=== PATIENT | female | born 1950 | race Caucasian/White ===

== ENCOUNTER → 2016-08-05 | Outpatient (CLI) | payer OTHER ==
[2014-05-28 12:31] VITALS: BP 181/78
[2016-08-05 08:23] LABS: BASOPHILS % (AUTO) 0.7 % (0.2-1.0); EOSINOPHILS # (AUTO) 0.1 x10^3/uL (0.0-0.2); EOSINOPHILS % (AUTO) 2.1 % (0.9-2.9); HEMATOCRIT 39.9 % (36.0-47.0); HEMOGLOBIN 13.2 g/dL (12.0-16.0); LYMPHOCYTES # (AUTO) 1.2 X10^3/uL (1.3-2.9); LYMPHOCYTES % (AUTO) 32.4 % (21.0-51.0); MEAN CORPUSCULAR HGB CONC 33.1 g/dL (33.0-35.0); MEAN CORPUSCULAR VOLUME 90.8 fL (80.0-100.0); MEAN PLATELET VOLUME 10.1 fL (7.4-11.0); MONOCYTES # (AUTO) 0.4 x10^3/uL (0.3-0.8); MONOCYTES % (AUTO) 9.5 % (0.0-13.0); NEUTROPHILS # (AUTO) 2.1 x10^3/uL (2.2-4.8); NEUTROPHILS % (AUTO) 55.3 % (42.0-75.0); PLATELET COUNT 135 X10^3/uL (150.0-450.0); RED CELL DISTRIBUTION WIDTH 13.5 % (11.6-16.5); WHITE BLOOD COUNT 3.8 X10^3/uL (3.6-10.0)
== END | disposition home or self-care (01) ==
LOC: LAB 08:03
PROVIDERS: ATTEND Obstetrics & Gynecology Obstetrics
DX: R23.3 Spontaneous ecchymoses (principal); D51.0 Vitamin B12 deficiency anemia due to intrinsic factor deficiency
CPT/HCPCS: 36415; 82607; 82746; 85025; 85610; 85730

== ENCOUNTER → 2016-11-28 | Outpatient (CLI) | payer OTHER ==
[2014-05-28 12:31] VITALS: BP 181/78
--- NOTE | 2016-11-28 12:20 | MRI ---
HISTORY: Degenerative disc disease, cervicalgia, right radiculopathy Study: MRI cervical spine without contrast Comparison: None Technique: Multiplanar multisequence MRI of the cervical spine was obtained utilizing standard [facility] mental protocol. Findings: Alignment of the cervical spine is maintained. No abnormal signal characteristics of the bone marrow can be identified. No evidence for fracture or significant bone or edema can be seen. The surround ing soft tissues are unremarkable. The cervical spinal cord is normal in size and configuration and without foci of abnormal signal. C2 -- C3: No evidence for compressive disc disease. The neural foramina are patent. C3 -- C4: No evidence for compressive disc disease. The neural foramina are patent. C4 -- C5: There is mild disc degeneration. Mild broad-based disc bulging and spondylitic change contr ibute to foraminal narrowing bilaterally. There is no canal stenosis or cord compression. C5 -- C6: There is disc degeneration with broad-based disc osteophyte formation effacing the thecal s ac and contributing to foraminal narrowing on the right. The left neural foramen is patent. There is no canal stenosis or cord compression. C6 -- C7: Mild broad-based disk bulging effaces the thecal sac but does not contribute to significant canal stenosis or cord compression. There is moderate foraminal narrowing bilaterally. C7 -- T1: There is no evidence for compressive disc disease. The neural foramina are patent. IMPRESSION: As above Reported By:
== END | disposition home or self-care (01) | DRG 552 ==
LOC: RAD 08:57
PROVIDERS: ATTEND Physical Medicine & Rehabilitation
DX: M50.321 Other cervical disc degeneration at C4-C5 level (principal); M54.12 Radiculopathy, cervical region; M25.78 Osteophyte, vertebrae; M50.223 Other cervical disc displacement at C6-C7 level
CPT/HCPCS: 72141

== ENCOUNTER → 2016-12-31 | Outpatient (CLI) | payer OTHER ==
[2014-05-28 12:31] VITALS: BP 181/78
[2016-12-31 15:35] LABS: BASOPHILS % (AUTO) 0.6 % (0.2-1.0); EOSINOPHILS # (AUTO) 0.1 x10^3/uL (0.0-0.2); EOSINOPHILS % (AUTO) 1.7 % (0.9-2.9); HEMATOCRIT 41.3 % (36.0-47.0); HEMOGLOBIN 13.8 g/dL (12.0-16.0); LYMPHOCYTES # (AUTO) 1.8 X10^3/uL (1.3-2.9); LYMPHOCYTES % (AUTO) 31.8 % (21.0-51.0); MEAN CORPUSCULAR HGB CONC 33.5 g/dL (33.0-35.0); MEAN CORPUSCULAR VOLUME 89.6 fL (80.0-100.0); MEAN PLATELET VOLUME 11.5 fL (7.4-11.0); MONOCYTES # (AUTO) 0.4 x10^3/uL (0.3-0.8); NEUTROPHILS # (AUTO) 3.4 x10^3/uL (2.2-4.8); NEUTROPHILS % (AUTO) 58.9 % (42.0-75.0); PLATELET COUNT 127 X10^3/uL (150.0-450.0); RED BLOOD COUNT 4.61 X10^6/uL (3.5-5.4); RED CELL DISTRIBUTION WIDTH 13.1 % (11.6-16.5); WHITE BLOOD COUNT 5.8 X10^3/uL (3.6-10.0)
[2016-12-31 15:57] LABS: ALANINE AMINOTRANSFERASE 23 Units/L (12-78); ALBUMIN 4.5 g/dL (3.4-5.0); ALKALINE PHOSPHATASE 63 Units/L (46-116); ASPARTATE AMINO TRANSFERASE 16 Units/L (15-37); BLOOD UREA NITROGEN 12 mg/dL (7-18); CALCIUM 9.7 mg/dL (8.5-10.1); CARBON DIOXIDE 31.1 mmol/L (21-32); CHLORIDE 106 mmol/L (98-107); CHOL/HDL RATIO 3.1 (0.0-5.0); CHOLESTEROL 210 mg/dL (0-200); CREATININE 0.78 mg/dL (0.55-1.02); HDL CHOLESTEROL 68 mg/dL (40-60); SODIUM 142 mmol/L (136-145); TOTAL PROTEIN 7.5 g/dL (6.4-8.2); TRIGLYCERIDES 102 mg/dL (0-150); TSH (3RD GENERATION) 1.286 uIU/mL (0.358-3.74); eGFR BLACK RACES > 60 (>60); eGFR NON BLACK RACES > 60 (>60)
== END ==
LOC: LAB 14:54
PROVIDERS: ATTEND Obstetrics & Gynecology Obstetrics
DX: Z00.00 Encounter for general adult medical examination without abnormal findings (principal); E55.9 Vitamin D deficiency, unspecified
CPT/HCPCS: 36415; 80053; 80061; 82306; 82652; 84443; 85025

== ENCOUNTER → 2017-06-03 | Outpatient (CLI) | payer OTHER ==
[2014-05-28 12:31] VITALS: BP 181/78
[2017-06-03 10:07] LABS: BASOPHILS # (AUTO) 0.1 X10^3/uL (0.0-0.1); EOSINOPHILS # (AUTO) 0.1 x10^3/uL (0.0-0.2); EOSINOPHILS % (AUTO) 1.4 % (0.9-2.9); HEMATOCRIT 41.3 % (36.0-47.0); LYMPHOCYTES # (AUTO) 1.5 X10^3/uL (1.3-2.9); LYMPHOCYTES % (AUTO) 23.9 % (21.0-51.0); MEAN CORPUSCULAR HEMOGLOBIN 29.8 pg (27.0-34.0); MEAN CORPUSCULAR HGB CONC 33.9 g/dL (33.0-35.0); MEAN CORPUSCULAR VOLUME 87.7 fL (80.0-100.0); MEAN PLATELET VOLUME 10.9 fL (7.4-11.0); MONOCYTES # (AUTO) 0.4 x10^3/uL (0.3-0.8); MONOCYTES % (AUTO) 6.6 % (0.0-13.0); NEUTROPHILS # (AUTO) 4.3 x10^3/uL (2.2-4.8); NEUTROPHILS % (AUTO) 67.1 % (42.0-75.0); PLATELET COUNT 150 X10^3/uL (150.0-450.0); RED BLOOD COUNT 4.71 X10^6/uL (3.5-5.4); RED CELL DISTRIBUTION WIDTH 13.6 % (11.6-16.5)
[2017-06-03 10:28] LABS: ALANINE AMINOTRANSFERASE 33 Units/L (12-78); ALBUMIN 4.1 g/dL (3.4-5.0); ALKALINE PHOSPHATASE 80 Units/L (46-116); ASPARTATE AMINO TRANSFERASE 22 Units/L (15-37); BLOOD UREA NITROGEN 12 mg/dL (7-18); CARBON DIOXIDE 31.1 mmol/L (21-32); CHLORIDE 104 mmol/L (98-107); CHOL/HDL RATIO 3.7 (0.0-5.0); CHOLESTEROL 235 mg/dL (0-200); CREATININE 0.87 mg/dL (0.55-1.02); FREE T4 (FREE THYROXINE) 0.84 ng/dL (0.76-1.46); HDL CHOLESTEROL 64 mg/dL (40-60); MAGNESIUM 2.1 mg/dL (1.7-2.9); SODIUM 142 mmol/L (136-145); TOTAL PROTEIN 7.4 g/dL (6.4-8.2); TRIGLYCERIDES 127 mg/dL (0-150); TSH (3RD GENERATION) 1.848 uIU/mL (0.358-3.74); eGFR BLACK RACES > 60 (>60); eGFR NON BLACK RACES > 60 (>60)
[2017-06-03 11:22] LABS: WHITE BLOOD COUNT 6.8 X10^3/uL (3.6-10.0)
[2017-06-03 11:23] LABS: PLATELET MORPHOLOGY COMMENT NORMAL (NORMAL)
--- NOTE | 2017-06-03 16:04 | MG ---
HISTORY: SCREENING Comparison: Multiple priors dating back to April 11, 2014 FINDINGS: Bilateral CC and MLO projections of the right and left breast were obtained utilizing full field and pushback technique with bilateral subpectoral saline implants appearing grossly intact. Heterogeneou sly dense fibroglandular tissue is seen to be present without significant interval change. No suspic ious architectural distortion, mass or clustered microcalcifications can be observed to suggest malig cristiano. No skin thickening or nipple retraction is appreciated. No pathological lymphadenopathy can be identified. Benign-appearing calcifications are noted within the right and left breast. IMPRESSION: NO RADIOGRAPHIC EVIDENCE OF MALIGNANCY. ACR CATEGORY 2 - benign findings. FOLLOW-UP EXAM 1 YEAR. Diagnostic CAD was utilized and reviewed. * 0 (ZERO) - ASSESSMENT INCOMPLETE; ADDITIONAL IMAGING IS NEEDED. * 1/1 (ONE) - NEGATIVE. * 2/II (TWO) - BENIGN FINDINGS. * 3/III (THREE) - PROBABLY BENIGN FINDING; SHORT INTERVAL FOLLOW-UP SUGGESTED. * 4/IV (FOUR) - SUSPICIOUS ABNORMALITY; BIOPSY SHOULD BE CONSIDERED. * 5/V - HIGHLY SUSPICIOUS OF MALIGNANCY; BIOPSY SHOULD BE PERFORMED. A NEGATIVE X-RAY REPORT SHOULD NOT DELAY BIOPSY IF A DOMINANT OR CLINICALLY SUSPICIOUS MASS IS PRESENT; 4 TO 8 PERCENT OF CANCERS ARE NOT IDENTIFIED BY X-RAY. A NEGA TIVE REPORT MAY REINFORCE THE CLINICAL IMPRESSION. ADENOSIS AND DENSE BREASTS MAY OBSCURE AN UNDERLY ING NEOPLASM. Reported By:
== END ==
LOC: RAD 09:30
PROVIDERS: ATTEND Nurse Practitioner Family
DX: Z12.31 Encounter for screening mammogram for malignant neoplasm of breast (principal); R53.83 Other fatigue; E55.9 Vitamin D deficiency, unspecified; E78.4 Other hyperlipidemia; D51.0 Vitamin B12 deficiency anemia due to intrinsic factor deficiency; R29.0 Tetany; N95.1 Menopausal and female climacteric states
CPT/HCPCS: 36415; 77067; 80053; 80061; 82306; 82607; 82670; 83735; 84144; 84270; 84402; 84403; 84439; 84443; 85025

== ENCOUNTER 2017-06-18 07:56 | Day surgery (SDC) | payer OTHER ==
[2017-06-18] MEDS ORDERED: D5 LR 1000 ML 1,000 ML IV ONE (08:02)
[2017-06-18] MEDS ORDERED: DIPRIVAN VIAL 20 ML ONE (09:42)
[2017-06-18 10:37] VITALS: BP 127/77
== END 2017-06-18 10:25 | disposition home or self-care (01) ==
LOC: SURG1 07:56
PROVIDERS: ATTEND Internal Medicine Gastroenterology
PROC: 0DB88ZX Excision of Small Intestine, Via Natural or Artificial Opening Endoscopic, Diagnostic (ICD-10-PCS; principal; 2017-06-18 09:00)
PROC: 0DJ08ZZ Inspection of Upper Intestinal Tract, Via Natural or Artificial Opening Endoscopic (ICD-10-PCS; principal; 2017-06-18 09:00)
PROC: 0DB68ZX Excision of Stomach, Via Natural or Artificial Opening Endoscopic, Diagnostic (ICD-10-PCS; principal; 2017-06-18 09:00)
DX: R10.13 Epigastric pain (principal); R11.0 Nausea; K21.9 Gastro-esophageal reflux disease without esophagitis; K20.8 Other esophagitis; K29.60 Other gastritis without bleeding
CPT/HCPCS: A4217; J3490; J7120

== ENCOUNTER 2017-08-03 00:32 | Emergency (ER) | payer OTHER ==
[2017-08-03 00:48] VITALS: BP 182/79; BMI 22.0
--- NOTE | 2017-08-03 01:13 | DR.GENAD ---
HPI - PCP Primary Care Physician: eDya Diaz - HPI Comment HPI Comment: TREATED FOR UTI BUT PAIN STILL PRESENT. PAIN WORSE TODAY. NO FEVER. TOOK AZO FOR SLIGHT DYSURIA. HAVING N/V. DID HAVE DIARRHEA WITH ANTIBIOTIC IS RESOLVING. - Complaint/Symptoms Chief Complaint Doctors Comments: RLQ ABDOMIONAL PAIN TIMES 4 DAYS. Chief Complaint:: Abdominal Pain, N/V and Diarrhea Self Treatment fo Chief Complaint: No Treatment - Nurses notes reviewed Nurses Notes Review: Yes - Source History Provided: Patient - Mode of Arrival Mode of Arrival: EMS - Timing Onset of Chief Complaint: 08/03/17 Came on: Suddenly - Duration Duration: Constant Duration: Days - Severity Severity: Moderate PMH - PMH Past Medical History: No Past Medical History: Anxiety, Depression Past Medical History Comment: C-Diff 3 years Ago Past Surgical History: Yes Surgical History: Hysterectomy, Neurosurgery Past Surgical History Comment: (R) Shoulder Surgery. Back Surgery - Family History History of Family Medical Conditions: Yes Family Medical History: Cancer, Coronary Artery Disease - Social History Does patient currently use any type of tobacco product: No Have you used tobacco products in the last 12 months: No Type of Tobacco Use: None Does any household member use tobacco: No Alcohol Use: None Do you use any recreational Drugs:: No Lives With: Alone Lives Where: Home - infectious screening In the last 2 months have you had wt loss of >10#?: NO Have you had fever, night sweats or hemotysis?: No Have you traveled outside the country in the last 6 months?: No Isolation: Standard ROS - Review of Systems Constitutional: No Symptoms Reported Eyes: No Symptoms Reported ENTM: No Symptoms Reported Respiratoy: No Symptoms Reported Cardiovascular: No Symptoms Reported Gastrointestinal/Abdominal: Abdominal Pain (RLQ ABDOMINAL PAIN), Nausea, Vomiting Neurological: No Symptoms Reported Musculoskeletal: Back Pain Integumentary: No Symptoms Reported Hematologic/Lymphatic: No Symptoms Reported Endocrine: No Symptoms Reported All Other Systems: Reviewed and Negative PE - Vital Signs Vitals: Temperature 97.8 F Pulse Rate 69 Respiratory Rate 22 Blood Pressure [Right Arm] 181/78 Blood Pressure [Left Arm] 122/60 Blood Pressure 182/79 O2 Sat by Pulse Oximetry 97 - General Limitations: No Limitations General Appearance: Alert - Head Head Exam: Normal Inspection - Eyes Eye exam: Normal Appearance - ENT ENT Exam: Normal External Ear Exam External Ear Exam: Normal External Inspection TM/Canal Exam: Bilateral Normal Nose Exam: Normal Nose Exam Mouth Exam: Normal Inspection Throat Exam: Normal Inspection - Neck Neck Exam: Trachea Midline - Chest Chest Inspection: Symmetric Chest Wall Rise - Respiratory Respiratory Exam: Normal Lung Sounds Bilat Respiratory Exam: Bilateral Clear to Auscultation - Cardiovascular Cardiovascular Exam: Regular Rate, Normal Rhythm, Normal Heart Sounds - Abdominal Exam Abdominal Exam: Normal Bowel Sounds, Soft, Tenderness Abdominal Tenderness: RLQ, Moderate - Extremities Extremities Exam: Normal Inspection - Back Back Exam: Normal Inspection - Neurologic Neurological Exam: Alert, Oriented X3 - Psychiatric Psychiatric Exam: Anxious - Skin Skin Exam: Normal Color MDM - Additional Information Additional Information Obtained From: Family - Differential Diagnosis Differential Diagnosis: RLQ ABDOMINAL PAIN, KIDNEY STONE, UTI, APPENDICITIS. Course - Treatment Treatment: SEE ORDERS. PAIN MED IN ED. PAIN IMPROVED. - Education/Counseling Education/Counseling: Patient, Family, Education Educated On: Treatment, Diagnosis, Needs for Follow Up ROR - Labs Reviewed Laboratory Results Reviewed?: Yes Result Diagrams: 08/03/17 01:13 08/03/17 01:13 Laboratory: WBC 14.0 X10^3/uL (3.6-10.0) H 08/03/17 01:13 RBC 4.70 X10^6/uL (3.5-5.4) 08/03/17 01:13 Hgb 13.7 g/dL (12.0-16.0) 08/03/17 01:13 Hct 40.8 % (36.0-47.0) 08/03/17 01:13 MCV 86.8 fL (80.0-100.0) 08/03/17 01:13 MCH 29.2 pg (27.0-34.0) 08/03/17 01:13 MCHC 33.6 g/dL (33.0-35.0) 08/03/17 01:13 RDW 12.9 % (11.6-16.5) 08/03/17 01:13 Plt Count 129 X10^3/uL (150.0-450.0) L 08/03/17 01:13 MPV 10.6 fL (7.4-11.0) 08/03/17 01:13 Neut % (Auto) 87.4 % (42.0-75.0) H 08/03/17 01:13 Lymph % (Auto) 7.3 % (21.0-51.0) L 08/03/17 01:13 Isabel[place] % (Auto) 4.9 % (0.0-13.0) 08/03/17 01:13 Eos % (Auto) 0.2 % (0.9-2.9) L 08/03/17 01:13 Baso % (Auto) 0.2 % (0.2-1.0) 08/03/17 01:13 Neut # (Auto) 12.3 x10^3/uL (2.2-4.8) H 08/03/17 01:13 Lymph # (Auto) 1.0 X10^3/uL (1.3-2.9) L 08/03/17 01:13 Isabela # (Auto) 0.7 x10^3/uL (0.3-0.8) 08/03/17 01:13 Eos # (Auto) 0.0 x10^3/uL (0.0-0.2) 08/03/17 01:13 Baso # (Auto) 0.0 X10^3/uL (0.0-0.1) 08/03/17 01:13 Absolute Nucleated RBC 0.0 /100WBC 08/03/17 01:13 Sodium 142 mmol/L (136-145) 08/03/17 01:13 Corrected Sodium 143 mmol/L (136-145) 08/03/17 01:13 Potassium 3.9 mmol/L (3.5-5.1) 08/03/17 01:13 Chloride 106 mmol/L (98-107) 08/03/17 01:13 Carbon Dioxide 24.9 mmol/L (21-32) 08/03/17 01:13 BUN 13 mg/dL (7-18) 08/03/17 01:13 Creatinine 0.88 mg/dL (0.55-1.02) 08/03/17 01:13 Est GFR (MDRD) Af Amer > 60 (>60) 08/03/17 01:13 Est GFR (MDRD) Non-Af > 60 (>60) 08/03/17 01:13 Glucose 127 mg/dL (65-99) H 08/03/17 01:13 Calcium 9.0 mg/dL (8.5-10.1) 08/03/17 01:13 Corrected Calcium TNP 08/03/17 01:13 Total Bilirubin 0.20 mg/dL (0.2-1.0) 08/03/17 01:13 AST 21 Units/L (15-37) 08/03/17 01:13 ALT 27 Units/L (12-78) 08/03/17 01:13 Alkaline Phosphatase 88 Units/L (46-116) 08/03/17 01:13 Total Protein 7.5 g/dL (6.4-8.2) 08/03/17 01:13 Albumin 4.1 g/dL (3.4-5.0) 08/03/17 01:13 Globulin 3.4 g/dL (2.5-4.5) 08/03/17 01:13 Albumin/Globulin Ratio 1.2 Ratio (1.1-2.1) 08/03/17 01:13 Amylase 36 Units/L (25-115) 08/03/17 01:13 Lipase 119 Units/L (73-393) 08/03/17 01:13 Specimen Type Clean catch urine 08/03/17 01:16 Urine Color [place] (YELLOW) 08/03/17 01:16 Urine Appearance Slightly hazy (CLEAR) 08/03/17 01:16 Urine pH 6.5 (5.0 - 8.0) 08/03/17 01:16 Ur Specific [place] 1.015 (1.000-1.030) 08/03/17 01:16 Urine Protein Negative (NEGATIVE) 08/03/17 01:16 Urine Glucose (UA) Negative (NEGATIVE) 08/03/17 01:16 Urine Ketones Negative (NEGATIVE) 08/03/17 01:16 Urine Occult Blood 3+ (NEGATIVE) 08/03/17 01:16 Urine Nitrite Positive (NEGATIVE) 08/03/17 01:16 Urine Bilirubin 1+ (NEGATIVE) 08/03/17 01:16 Urine Urobilinogen 2+ (NORMAL) 08/03/17 01:16 Ur Leukocyte Esterase 1+ (NEGATIVE) 08/03/17 01:16 Urine RBC 10-20 /HPF (NONE SEEN) 08/03/17 01:16 Urine WBC 0-2 /HPF (NONE SEEN) 08/03/17 01:16 Ur Squamous Epith Cells Few /HPF (NEGATIVE) 08/03/17 01:16 Urine Bacteria Trace /HPF (NEGATIVE) 08/03/17 01:16 Ur Culture Indicated? No/not indicated 08/03/17 01:16 - XRAY XRAY Findings: REPORT DISCUSS WITH PATIENT. - Diagnosis Discharge Problem: Right ureteral stone Abdominal pain Qualifiers: Abdominal location: right lower quadrant Qualified Code(s): R10.31 - Right lower quadrant pain - Discharge Plan Disposition: HOME, SELF-CARE Condition: Stable Prescriptions: Hydrocodone-Acet 5 mg/325 mg [[place] 5/325 mg Tab] 1 tab PO Q6H PRN #15 tab PRN Reason: Pain Ketorolac Tromethamine [Toradol Tab] 10 mg PO Q8H PRN #15 tab PRN Reason: Pain Tamsulosin HCl [Flomax] 0.4 mg PO DAILY #10 cap - Follow ups/Referrals Follow ups/Referrals: LINSEY HERNANDEZ [CONSULTING PHYSICIAN] - 08/03/17 IMER DIAZ [Primary Care Provider] - 3 days - Instructions Instructions: Kidney Stones, [id number], Abdominal Pain, Adult, [id number] Additional Instructions: RETURN TO ED IF WORSE.
[2017-08-03] MEDS ORDERED: PHENERGAN INJ 25 MG IV PRN (01:16)
[2017-08-03] MEDS ORDERED: DEMEROL INJ IVP ONE (01:16)
[2017-08-03] MEDS ORDERED: ZOFRAN INJ 4 MG VIAL IVP ONE (01:17)
[2017-08-03] MEDS ORDERED: PHENERGAN INJ 25 MG ONE (01:19)
[2017-08-03] MEDS ORDERED: DEMEROL INJ ONE (01:20)
[2017-08-03 01:24] LABS: BILIRUBIN,URINE 1+ (NEGATIVE); BLOOD/HEMOGLOBIN,URINE 3+ (NEGATIVE); GLUCOSE, URINE NEGATIVE (NEGATIVE); KETONES,URINE NEGATIVE (NEGATIVE); LEUKOCYTE ESTERASE ,URINE 1+ (NEGATIVE); NITRITES,URINE POSITIVE (NEGATIVE); PH,URINE 6.5 (5.0 - 8.0); PROTEIN,URINE NEGATIVE (NEGATIVE); UROBILINOGEN,URINE 2+ (NORMAL)
[2017-08-03 01:31] LABS: BASOPHILS % (AUTO) 0.2 % (0.2-1.0); EOSINOPHILS % (AUTO) 0.2 % (0.9-2.9); HEMATOCRIT 40.8 % (36.0-47.0); HEMOGLOBIN 13.7 g/dL (12.0-16.0); LYMPHOCYTES % (AUTO) 7.3 % (21.0-51.0); MEAN CORPUSCULAR HEMOGLOBIN 29.2 pg (27.0-34.0); MEAN CORPUSCULAR HGB CONC 33.6 g/dL (33.0-35.0); MEAN CORPUSCULAR VOLUME 86.8 fL (80.0-100.0); MEAN PLATELET VOLUME 10.6 fL (7.4-11.0); MONOCYTES # (AUTO) 0.7 x10^3/uL (0.3-0.8); MONOCYTES % (AUTO) 4.9 % (0.0-13.0); NEUTROPHILS # (AUTO) 12.3 x10^3/uL (2.2-4.8); NEUTROPHILS % (AUTO) 87.4 % (42.0-75.0); PLATELET COUNT 129 X10^3/uL (150.0-450.0); RED CELL DISTRIBUTION WIDTH 12.9 % (11.6-16.5)
[2017-08-03 01:35] LABS: APPEARANCE,URINE SLIGHTLY HAZY (CLEAR); COLOR,URINE ORANGE (YELLOW)
[2017-08-03 01:36] LABS: ALANINE AMINOTRANSFERASE 27 Units/L (12-78); ALBUMIN 4.1 g/dL (3.4-5.0); ALKALINE PHOSPHATASE 88 Units/L (46-116); AMYLASE 36 Units/L (25-115); ASPARTATE AMINO TRANSFERASE 21 Units/L (15-37); BLOOD UREA NITROGEN 13 mg/dL (7-18); CARBON DIOXIDE 24.9 mmol/L (21-32); CHLORIDE 106 mmol/L (98-107); COR NA(FOR HYPERGLY) 143 mmol/L (136-145); CREATININE 0.88 mg/dL (0.55-1.02); LIPASE 119 Units/L (73-393); SODIUM 142 mmol/L (136-145); TOTAL PROTEIN 7.5 g/dL (6.4-8.2); eGFR BLACK RACES > 60 (>60); eGFR NON BLACK RACES > 60 (>60)
[2017-08-03 01:38] LABS: BACTERIA,URINE TRACE /HPF (NEGATIVE); SQUAMOUS EPITHELIAL CELL,UR FEW /HPF (NEGATIVE)
--- NOTE | 2017-08-03 02:18 | CT ---
CT abdomen and pelvis without contrast Indication: Abdominal pain with nausea and vomiting. Comparison: 03/02/2014 CT Technique: Helical images through the abdomen and pelvis without contrast. Coronal formats provided. Findings: Limited images through the lower chest shows breast implants, without acute abnormality rose ntified. Review of bone windows shows no destructive osseous lesion. Spine and pelvis degenerative ch anges are noted. Abdomen: Within the limits of a noncontrast study, the liver, gallbladder, spleen, pancreas, adrenal glands, stomach and small bowel are normal. The colon and appendix are normal. Vasculature is normal. Left kidney shows no hydroureteronephrosis. There is hydroureteronephrosis on the right with [address] one in the distal right ureter near the ureterovesical junction on axial image 85. Pelvis: The urinary bladder and rectum are normal. Uterus is absent. No adnexal region lesions seen. Impression: 1. Moderate to severe right hydroureteronephrosis with small stone at the right ureterovesical juncti on. 2. No other acute abnormality. Reported By:
[2017-08-03] MEDS ORDERED: NS 1000 ML 1,000 ML ONE (02:38)
[2017-08-03] MEDS ORDERED: FLOMAX PO ONE (02:49)
--- NOTE | 2017-08-03 03:38 | RAD ---
Acute abdomen-three views Indication: Abdominal pain with nausea and vomiting. Findings: There is no pneumothorax or effusion. Heart size is within normal limits for technique. No free air or pneumatosis seen. No dilated loop of small bowel identified. Impression: No acute abnormality seen. See separately dictated CT report Reported By:
== END 2017-08-03 03:30 | disposition home or self-care (01) ==
LOC: ER 00:32
DX: N20.1 Calculus of ureter (principal); R10.31 Right lower quadrant pain
CPT/HCPCS: 36415; 74022; 74176; 80053; 81001; 82150; 83690; 85025; 96365; 96374; 96375; 99283; 99284; A4216; A4222; J2175; J2550